=== PATIENT | female | born 1955 | race Hispanic/Latino ===

== ENCOUNTER 2017-05-08 11:00 | Day surgery (SDC) | payer OTHER ==
[~2017-05-08 11:00] MED LIST: ANCEF/STERILE WATER 2 GM/20 ML IV NR
[2017-05-08] MEDS ORDERED: NACL BACTERIOSTATIC INFILTRATI ONE (12:25)
[2017-05-08] MEDS ORDERED: DILAUDID IV PRN (12:51)
[2017-05-08] MEDS ORDERED: PERCOCET 5/325 PO PRN (12:51)
--- NOTE | 2017-05-08 12:51 | Anesthesia Consultation ---
Anesthesia Consult and Med Hx Date of service: 05/08/17 - Airway Anesthetic Teeth Evaluation: Caps, Bridges ROM Head & Neck: Adequate Mental/Hyoid Distance: Adequate Mallampati Class: Class II Intubation Access Assessment: Good - Pulmonary Exam CTA: Yes - Cardiac Exam Cardiac Exam: RRR - Pre-Operative Health Status ASA Pre-Surgery Classification: ASA2 Proposed Anesthetic Plan: General - Pulmonary Hx Smoking: Yes (STOPPED X 4 YRS- 1/2 PPD X 40 YRS) Hx Sleep Apnea: No ([place] PRE SCREEN LOW RISK.) - Cardiovascular System Hx Hypertension: No - Hematic Hx Anemia: Yes (NOT RECENT) - Other Systems Hx Cancer: No - Additional Comments Anesthesia Medical History Comments: h/o PONV
--- NOTE | 2017-05-08 12:51 | Anesthesia Day of Surgery ---
Anesthesia Day of Surgery - Day of Surgery Patient Examined: Yes Patient H&P Reviewed: Yes Patient is NPO: Yes
[2017-05-08] MEDS ORDERED: NACL 0.9% 1000 ML 1,000 ML IV SCH (13:00)
[2017-05-08] MEDS ORDERED: PEPCID IV NR (13:00)
[2017-05-08] MEDS ORDERED: VERSED IV NR (13:00)
[2017-05-08] MEDS ORDERED: TRANSDERM-SCOP TD NR (13:00)
[2017-05-08] MEDS ORDERED: MARCAINE 0.25% INFILTRATI ONE ×2 (15:07→17:24)
[2017-05-08] MEDS ORDERED: XYLOCAINE 1% 20 mL ONE ×2 (15:07→15:08)
[2017-05-08] MEDS ORDERED: ADRENALIN ONE (15:07)
[2017-05-08] MEDS ORDERED: DIPRIVAN 10 MG/ML IV ONE (16:42)
[2017-05-08] MEDS ORDERED: DILAUDID ONE (16:42)
[2017-05-08] MEDS ORDERED: XYLOCAINE MPF 2% ONE (16:42)
[2017-05-08] MEDS ORDERED: ROBINUL ONE (16:47)
[2017-05-08] MEDS ORDERED: DECADRON ONE (16:49)
[2017-05-08] MEDS ORDERED: ZOFRAN ONE (16:49)
[2017-05-08] MEDS ORDERED: NEO SYNEPHRINE/NS Syringe(OR USE) IV ONE (16:53)
[2017-05-08] MEDS ORDERED: XYLOCAINE 1% 20 mL INFILTRATI ONE (17:23)
[2017-05-08] MEDS ORDERED: ADRENALIN IV ONE (17:24)
[2017-05-08] MEDS ORDERED: NACL 0.9% IR ONE (17:24)
--- NOTE | 2017-05-08 18:08 | Post Anesthesia Evaluation ---
- Post Anesthesia Evaluation Patient Participated: Yes Airway Patent: Yes Stable Respiratory Function: Yes Nausea/Vomiting: No Temp > 96.8F: Yes Pain Manageable: Yes Adequeate Hydration: Yes Anesthesia Complications: No Block Receding Appropriately: Not Applicable Patient on Ventilator: No
--- NOTE | 2017-05-08 19:39 | Procedure Note ---
Date of procedure: 05/08/17 Pre-op diagnosis: medial menisectomy Post-op diagnosis: same Procedure: Right knee arthroscopy with partial medial menisectomy Anesthesia: GETA Surgeon: MIRIAM FUCHS III Estimated blood loss: none Pathology: none Condition: stable Disposition: PACU
[2017-05-08 19:53] VITALS: BP 120/71
--- NOTE | 2017-05-08 23:01 | Operative Report ---
PREOPERATIVE DIAGNOSIS: Right knee medial meniscus tear. POSTOPERATIVE DIAGNOSIS: Right knee medial meniscus tear. PROCEDURE: Right knee arthroscopy with partial medial meniscectomy. SURGEON: Dr. Leo Lopez III. ALARM OPERATOR: None. ANESTHESIA: General. ESTIMATED BLOOD LOSS: None. TOURNIQUET TIME: 38 minutes. INDICATIONS: The patient is a 62-year-old female, who presented several months ago with right knee pain. The patient was treated with anti-inflammatories and formal physical therapy for more than 6 weeks with very little benefit to the pain in her knee. The patient opted to have a right knee arthroscopic procedure for treatment of her medial meniscus tear. DESCRIPTION OF PROCEDURE: The patient was seen in preop holding area, consent was reviewed, H and P was reviewed, and the operative limb was marked and signed. The patient was taken back to the operating room theater by Anesthesia and put under general anesthesia by the obstetrical anesthesiologist. The patient was placed supine on the operating room table with a lateral post and a tourniquet on the upper thigh. Local anesthetic was introduced into the joint in sterile fashion, cocktail of 20 mL of 1% lidocaine, 30 mL of 0.25% Marcaine. The patient's right leg was prepped and draped in the usual manner with chlorhexidine solution. Timeout was completed and an Esmarch was used to exsanguinate the limb and a tourniquet was increased to 250 mmHg. Standard anterolateral viewing portal was made with an 11 blade. Trocar was introduced in the suprapatellar pouch and a diagnostic scope was performed. Lateral gutter was free of any loose debris. Lateral and medial patellar facets had grade 1 OA. There is very little arthritis in the patellofemoral joint. Medial gutter was clear of any arthritis and the camera was placed in the medial compartment. Spinal needle was used to make the anterior medial working portal and a probe was introduced in the medial compartment. The patient had a complex tear of the posterior aspect of her medial meniscus including the posterior horn and posterior body. Arthroscopic biters and david were used to take this tear back to a stable rim and remove all debris. The patient had no arthritic changes on the medial proximal tibia and had grade 2 changes on the medial femoral condyle. The scope was moved across the knee, examining the ACL, which was intact and strong under tension. A camera was placed in the lateral compartment and the lateral meniscus was probed. Posterior horn was intact. There is appropriate excursion and no tears seen in the lateral meniscus. Lateral femoral condyle and lateral tibial plateau had no evidence of any arthritic changes. Scope was placed in the suprapatellar pouch, debris was removed, camera was removed, and the water was drained from the knee. 3-0 Monocryl was used to close the arthroscopic portals followed by Steri-Strips, Adaptic, 4 x 4s, ABDs, fluff, and an Otilio bandage. The patient was transferred from the operating room table to the hospital bed and taken to PACU in stable condition under the care of anesthesia. The patient will be weightbearing as tolerated with crutches and can wean off the crutches as tolerated. She will be seen in clinic in 1 week. JOB# [id number] BERENICE/DONNA
== END 2017-05-08 19:27 | disposition home or self-care (01) ==
LOC: OR 11:00
PROVIDERS: ATTEND Orthopaedic Surgery Sports Medicine
DX: M23.221 Derangement of posterior horn of medial meniscus due to old tear or injury, right knee (principal); Z87.891 Personal history of nicotine dependence; Z88.2 Allergy status to sulfonamides; Z91.048 Other nonmedicinal substance allergy status
CPT/HCPCS: 29881; A4217; J0171; J0690; J1100; J1170; J2250; J2370; J2405; J2704; J7030